=== PATIENT | female | born 1975 | race Caucasian/White ===

== ENCOUNTER 2018-04-26 11:42 | Emergency (ER) | payer OTHER ==
[~2018-04-26] VITALS: Ht 160 cm; Wt 75.5 kg
[~2018-04-26 11:42] MED LIST: ESCI20TA PO; HYDR-4031 PO; TRAZ-219 PO
[2018-04-26 11:58] VITALS: BP 122/78
[2018-04-26] MEDS ORDERED: NEOMYCIN/BACITRACIN/POLYMYXIN B OINTMENT PACKET TP ONE (13:15)
[2018-04-26] MEDS ORDERED: HYDR50CA10 PO (13:18)
== END 2018-04-26 13:53 | disposition home or self-care (01) ==
LOC: EMS 11:43
DX: T20.26XA Burn of second degree of forehead and cheek, initial encounter (principal); X12.XXXA Contact with other hot fluids, initial encounter; Y93.89 Activity, other specified; Y92.89 Other specified places as the place of occurrence of the external cause; Y99.8 Other external cause status
CPT/HCPCS: 16000